=== PATIENT | male | born 1990 | race African-American/Black ===

== ENCOUNTER 2017-11-10 13:53 | Emergency (ER) | payer OTHER ==
[2017-11-10] MEDS ORDERED: traMADol TAB* 50 MG PO ONE (15:38)
[2017-11-10] MEDS ORDERED: Ketorolac INJ* 30 MG/ML 1 ML VIAL IV PUSH ONE (15:38)
[2017-11-10] MEDS ORDERED: Lidocaine PATCH 5%* 1 PATCH TRANSDERM SCH (16:00)
[2017-11-10 16:14] LABS: ABS Basophils 0 10^3/ul (0-0.2); ABS Eosinophils 0 10^3/ul (0-0.6); ABS Lymphocytes 1.7 10^3/ul (1.0-4.8); ABS Monocytes 0.2 10^3/ul (0-0.8); ABS Neutrophils 1.8 10^3/ul (1.5-7.7); ABS Nucleated RBC 0 10^3/ul; Eosinophil % 0.1 % (0-6); Hematocrit 49 % (42-52); Hemoglobin 16.4 g/dl (14.0-18.0); Lymphocyte % 45.6 % (25-47); Mean Corpuscular HGB Conc 33 g/dl (31-36); Mean Corpuscular Hemoglobin 26 pg (27-31); Mean Corpuscular Volume 78 fL (80-94); Mean Platelet Volume 9.1 um3 (7.4-10.4); Nucleated Red Blood Cells % 0.2; Platelet Count 138 10^3/ul (150-450); Red Blood Count 6.28 10^6/ul (4.0-5.4); Red Cell Distribution Width 15 % (10.5-15); White Blood Count 3.7 10^3/ul (3.5-10.8)
--- NOTE | 2017-11-10 16:21 | RAD ---
Indication: Chest pain. 2 views of the chest including dual energy PA views demonstrate no mediastinal shift. Heart is of normal size and configuration. Lung humphries appear clear. IMPRESSION: No active cardiopulmonary disease is noted.
[2017-11-10 16:30] LABS: EGFR Non-African American 85.4 (>60)
[2017-11-10 17:02] LABS: Urine Appearance Clear; Urine Blood Negative (Negative); Urine Color Yellow; Urine Ketones 1+ (Negative); Urine Protein Negative (Negative); Urine Specific Gravity 1.025 (1.010-1.030); Urine Urobilinogen Negative (Negative)
[2017-11-10] MEDS ORDERED: [UNRECOGNIZED DRUG - OTHER] PO ONE ×3 (18:08→18:32)
[2017-11-10 18:37] VITALS: BP 159/87
[2017-11-10] MEDS ORDERED: Lidocaine Patch REMOVE* 1 NOTE MISC SCH (21:00)
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
== END 2017-11-10 18:37 | disposition home or self-care (01) ==
LOC: ED 13:53
DX: M54.5 Low back pain (principal); M54.6 Pain in thoracic spine; I10 Essential (primary) hypertension; F17.200 Nicotine dependence, unspecified, uncomplicated
CPT/HCPCS: 36415; 71046; 80053; 81003; 83605; 84484; 85025; 85379; 93005; 96374; 99282; A9270-GY; J1885

== ENCOUNTER 2018-01-29 09:09 | Emergency (ER) | payer OTHER ==
[2018-01-29] MEDS ORDERED: Naproxen TAB* 250 MG PO ONE (09:59)
--- NOTE | 2018-01-29 10:04 | ED ---
Skin Complaint - HPI Summary HPI Summary: Patient is a 27-year-old male who presents emergency department for a rash and a headache. Patient states he noticed a spreading rash that started yesterday. He states he started with a headache today he noted to his left forehead and decreased appetite. Denies recent illness, fever, chills, cough, sore throat or ear pain, abdominal pain and diarrhea. States rash is not itchy or painful. No past medical history. Immunizations are up-to-date. Symptoms are mild in severity. - History of Current Complaint Chief Complaint: EDGeneral Time Seen by Provider: 01/29/18 09:25 Stated Complaint: HEADACHE/BITES Hx Obtained From: Patient Pain Intensity: 7 - Allergy/Home Medications Allergies/Adverse Reactions: Allergies Allergy/AdvReac Type Severity Reaction Status Date / Time No Known Allergies Allergy Verified 01/30/18 07:07 PMH/Surg Hx/FS Hx/Imm Hx Previously Healthy: Yes Sensory History: Denies: Hx Legally Blind, Hx Deafness Opthamlomology History: Denies: Hx Legally Blind Infectious Disease History: No Infectious Disease History: Denies: Traveled Outside the [place] in Last 30 Days - Family History Known Family History: Positive: Hypertension - Social History Occupation: Employed Full-time Lives: With Family Alcohol Use: None Substance Use Type: Reports: None Smoking Status (MU): Light Every Day Tobacco Smoker Review of Systems Constitutional: Negative Negative: Fever, Chills Eyes: Negative ENT: Negative Cardiovascular: Negative Respiratory: Negative Gastrointestinal: Negative Genitourinary: Negative Positive: Other - Rash on trunk Positive: Headache. Negative: Weakness, Paresthesia, Numbness All Other Systems Reviewed And Are Negative: Yes Physical Exam Triage Information Reviewed: Yes Vital Signs On Initial Exam: Initial Vitals Temp Pulse Resp BP Pulse Ox 100.1 F 98 17 154/103 99 01/29/18 09:16 01/29/18 09:16 01/29/18 09:16 01/29/18 09:16 01/29/18 09:16 Vital Signs Reviewed: Yes Appearance: Positive: Well-Appearing - Pt. sitting up in bed in NAD. Skin: Positive: Warm, Dry, Other - Small, fluid filled blisters noted to the chest and back. No lesions to palms of soles of feet. Head/Face: Positive: Normal Head/Face Inspection Eyes: Positive: Normal ENT: Positive: Pharynx normal, TMs normal, Other - No lesions in mouth or to mucosa.. Negative: Tonsillar swelling, Tonsillar exudate Neck: Positive: Supple, Nontender, No Lymphadenopathy Cardiovascular: Positive: Normal, RRR Abdomen Description: Positive: Nontender, No Organomegaly Neurological: Positive: Normal, CN Intact II-III Psychiatric: Positive: Affect/Mood Appropriate Diagnostics - Vital Signs Vital Signs Temp Pulse Resp BP Pulse Ox 01/29/18 09:16 100.1 F 98 17 154/103 99 - Laboratory Lab Statement: Any lab studies that have been ordered have been reviewed, and results considered in the medical decision making process. Course/Dx - Course Course Of Treatment: Pt. presenting for headache and rash. Low grade fever. Overall very well appearing and nontoxic. Pt. examined by Dr. Chew as well. Given presentation of rash suspect mild VZV vs. HSV. Viral culture obtained. Will treat with antivirals. Advised tylenol or motrin for discomfort as directed. To increase fluids and rest. Advised to avoid contact with immunocompentent and infants. To f.u with [facility] clinic or return to ER if symptoms change or worsen. Pt. understands and agrees with plan. Assessment/Plan: Dr. Chew: I supervised the care of the physician assistant plant controller and I performed a history and physical on this patient. History: Feeling of malaise as well as a vesicular rash. Vaccinated for varicella. Physical exam: Exam normal other than scattered vesicular lesions on erythematous base each in various stage of development. And overall few number of lesions. Plan: Possible varicella from incomplete vaccination with viral syndrome. - Differential Diagnoses - Skin Complaint Differential Diagnoses: Poison Prerna, Scabies, Tick Born Illness, Tinea, Urticaria , Varicella Zoster, Viral Exanthem - Diagnoses Provider Diagnoses: HSV infection, Rash Discharge - Sign-Out/Discharge Documenting (check all that apply): Patient Departure - Discharge Plan Condition: Good Disposition: HOME Prescriptions: Acyclovir* [Zovirax 400 MG TAB*] 800 mg PO QID #40 tab Patient Education Materials: Chickenpox (ED) Referrals: No Primary Care Phys,NOPCP [Primary Care Provider] - [facility] [Outside] Additional Instructions: Schedule a follow up appointment with the [facility] Take antiviral as directed Tylenol or Motrin for pain as directed Avoid contact with infants, unvaccinated, or immunocompromised Return to ER if symptoms change or worsen - Billing Disposition and Condition Condition: GOOD Disposition: Home
[2018-01-29 12:15] VITALS: BP 135/99
[2018-02-01 17:35] LABS: HSV 1 PCR Negative (Negative); Varicella Zoster Source r upper back blister
== END 2018-01-29 12:06 | disposition home or self-care (01) ==
LOC: ED 09:09
DX: B00.9 Herpesviral infection, unspecified (principal); R21 Rash and other nonspecific skin eruption; F17.200 Nicotine dependence, unspecified, uncomplicated
CPT/HCPCS: 87529; 87798; 99282; A9270-GY

== ENCOUNTER → 2018-01-30 06:57 | Emergency (ER) | payer OTHER ==
[~2018-01-30 06:57] MED LIST: Ketorolac INJ* 30 MG/ML 1 ML VIAL IV PUSH ONE; NS 0.9% 1000 ML* 1,000 ML IV ONE; diPHENhydraMINE IV* 50 MG/ML 1 ml VIAL (BENADRYL) IV ONE
--- NOTE | 2018-01-30 07:34 | ED ---
HPI Febrile Illness - HPI Summary HPI Summary: This patient is a 27 year old M presenting to [facility] with a chief complaint of rash accompanied by fever worsening since midnight last night. The patient rates the pain 10/10 in severity. Symptoms not alleviated by calamine lotion. Patient reports fever, itching, vomiting, diaphoresis, HOFFMAN, nausea, body aches, malaise. Patient denies cough or diarrhea. On Wednesday morning, the pt noticed a spot on his stomach and by 12 pm he was feeling much more symptomatic. Pt came in yesterday for rash accompanied by fever and was diagnosed with Chicken Pox. SHx of tobacco use, doesnt drink. 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 PMHx none. Pt has taken acyclovir [employer]. - History of Current Complaint Chief Complaint: EDGeneral Time Seen by Provider: 01/30/18 07:16 Hx Obtained From: Patient Onset/Duration: Started Days Ago - Wednesday Timing: Constant Initial Severity: Mild Current Severity: Moderate Pain Intensity: 10 Pain Scale Used: 0-10 Numeric - Allergy/Home Medications Allergies/Adverse Reactions: Allergies Allergy/AdvReac Type Severity Reaction Status Date / Time No Known Allergies Allergy Verified 01/30/18 07:07 PMH/Surg Hx/FS Hx/Imm Hx Sensory History: Denies: Hx Legally Blind, Hx Deafness Opthamlomology History: Denies: Hx Legally Blind EENT History: Denies: Hx Deafness Infectious Disease History: No Infectious Disease History: Denies: Traveled Outside the [place] in Last 30 Days - Family History Known Family History: Positive: Hypertension - Social History Occupation: Employed Full-time - long-term Alcohol Use: None Substance Use Type: Reports: None Hx Tobacco Use: Yes Smoking Status (MU): Light Every Day Tobacco Smoker Review of Systems Positive: Fever, Skin Diaphoresis, Other - Malaise Negative: Cough Positive: Vomiting, Nausea. Negative: Diarrhea Positive: Rash - Itchy Positive: Headache, Weakness - body ache All Other Systems Reviewed And Are Negative: Yes Physical Exam - Summary Physical Exam Summary: Appearance: Well appearing, no pain distress Skin: warm. Vesicular lesions on the body and face. Erythematous scabs. Head/face: Pruritic lesions Eyes: EOMI, EMILIANA ENT: normal Neck: supple, non-tender Respiratory: CTA, breath sounds present Cardiovascular: RRR, pulses symmetrical Abdomen: non-tender, soft Bowel Sounds: present Musculoskeletal: normal, strength/ROM intact Neuro: normal, sensory motor intact, A&Ox3 Triage Information Reviewed: Yes Vital Signs On Initial Exam: Initial Vitals Temp Pulse Resp BP Pulse Ox 101.9 F 101 18 138/83 100 01/30/18 07:00 01/30/18 07:00 01/30/18 07:00 01/30/18 07:00 01/30/18 07:00 Vital Signs Reviewed: Yes Diagnostics - Vital Signs Vital Signs Temp Pulse Resp BP Pulse Ox 01/30/18 07:00 101.9 F 101 18 138/83 100 - Laboratory Lab Statement: Any lab studies that have been ordered have been reviewed, and results considered in the medical decision making process. Course/Dx - Course Course Of Treatment: Patient with chickenpox and associated viral syndrome. Treated symptomatically here with fluids, Toradol, Tylenol and Benadryl for itching. Improved through course. Discharged to follow up with family doctor. - Diagnoses Provider Diagnoses: Varicella zoster, Viral syndrome Discharge - Sign-Out/Discharge Documenting (check all that apply): Patient Departure - Discharge - Discharge Plan Condition: Improved Disposition: HOME Patient Education Materials: Chickenpox (ED) Forms: *Work Release Referrals: [facility] [Outside] [facility] [Outside] Additional Instructions: Drink plenty of fluids. Tylenol, ibuprofen for body aches. Benadryl for itching. Calamine lotion may help the rash. Return if worse, new symptoms or other concerns. - Billing Disposition and Condition Condition: IMPROVED Disposition: Home
[2018-01-30 11:49] VITALS: BP 125/85
--- NOTE | 2018-02-02 11:42 | ED ---
Progress - Progress Note Progress Note: Patient's wound swab confirms VZV. Patient was started on acyclovir within 24 hours of onset. He reports he has no new lesions and most all of his lesions are scabbed. He feels he is improving and that his rash should clear up in the next few days. No fevers reported. Patient is aware of this disorder and how may be contagious, etc. He will seek follow-up as needed. Course/Dx - Course Course Of Treatment: Patient with chickenpox and associated viral syndrome. Treated symptomatically here with fluids, Toradol, Tylenol and Benadryl for itching. Improved through course. Discharged to follow up with family doctor. - Diagnoses Provider Diagnoses: Varicella zoster, Viral syndrome Discharge - Sign-Out/Discharge Documenting (check all that apply): Post-Discharge Follow Up - Discharge Plan Condition: Improved Disposition: HOME Patient Education Materials: Chickenpox (ED) Forms: *Work Release [facility]errals: [facility] [Outside] [facility] [Outside] Additional Instructions: Drink plenty of fluids. Tylenol, ibuprofen for body aches. Benadryl for itching. Calamine lotion may help the rash. Return if worse, new symptoms or other concerns. - Billing Disposition and Condition Condition: IMPROVED Disposition: Home
== END | disposition home or self-care (01) ==
LOC: ED 06:57
DX: B34.9 Viral infection, unspecified (principal); B02.9 Zoster without complications
CPT/HCPCS: 96361; 96374; 96375; 99283; J1200; J1885

== ENCOUNTER 2018-06-28 21:57 | Emergency (ER) | payer SELFPAY ==
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
[2018-06-28] MEDS ORDERED: Ibuprofen TAB* 800 MG PO ONE (22:44)
[2018-06-28 22:54] VITALS: BP 141/100
--- NOTE | 2018-07-01 06:20 | PN ---
Progress Note - Progress Note Date of Service: 06/29/18 Note: Discrepancy shows: Discharged with possible + hand fx Xray read as negative. Patient is called to make aware, but did not answer - will send letter. Letter sent 07/01/18. JUNE PepperC
== END 2018-06-28 22:53 | disposition home or self-care (01) ==
LOC: ED 21:57
DX: S69.91XA Unspecified injury of right wrist, hand and finger(s), initial encounter (principal); Y04.2XXA Assault by strike against or bumped into by another person, initial encounter; Y92.9 Unspecified place or not applicable; F17.200 Nicotine dependence, unspecified, uncomplicated
CPT/HCPCS: 99282; A9270-GY

== ENCOUNTER 2018-07-06 08:55 | Emergency (ER) | payer SELFPAY ==
[2018-07-06] MEDS ORDERED: Acetaminophen TAB* 325 MG PO ONE (09:22)
--- NOTE | 2018-07-06 09:29 | ED ---
Upper Extremity Pain - HPI Summary HPI Summary: Patient presents with persistent right hand/thumb pain since injury on 2017. He came here for evaluation and was initially diagnosed with a fracture and placed a thumb spica however final radiology report revealed no fracture. He admits he removed his thumb spica 2 days ago as he was having worsening of pain and swelling in the splint felt like it was causing more harm than good. He has been taking ibuprofen without relief. Has not tried any Tylenol. He has been out of work as his job requires him to lift. Denies numbness tingling or weakness. Pain is worse with moving thumb in any direction and he's reporting difficulty with gripping due to pain. He also reports a burning sensation over his thenar eminence. He is able to move his wrist without difficulty. No other complaints at this time. He has not followed up with orthopedics. - History of Current Complaint Chief Complaint: EDExtremityUpper Stated Complaint: RIGHT HAND PAIN Time Seen by Provider: 07/06/18 09:08 Hx Obtained From: Patient - Allergies/Home Medications Allergies/Adverse Reactions: Allergies Allergy/AdvReac Type Severity Reaction Status Date / Time No Known Allergies Allergy Verified 01/30/18 07:07 PMH/Surg Hx/FS Hx/Imm Hx Previously Healthy: Yes Endocrine/Hematology History: Denies: Hx Anticoagulant Therapy Respiratory History: Denies: Hx Asthma Musculoskeletal History: Reports: Other Musculoskeletal History - Left hand injury s/p punching Sensory History: Denies: Hx Legally Blind, Hx Deafness Opthamlomology History: Denies: Hx Legally Blind Infectious Disease History: No Infectious Disease History: Denies: Traveled Outside the [place] in Last 30 Days - Family History Known Family History: Positive: Hypertension - Social History 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" Alcohol Use: None Hx Substance Use: No Substance Use Type: Reports: None Hx Tobacco Use: Yes Smoking Status (MU): Current Every Day Smoker Review of Systems Positive: no symptoms reported Positive: Arthralgia, Myalgia, Decreased ROM - d/t pain, Edema Skin: Negative Neurological: Negative Positive: Anxious All Other Systems Reviewed And Are Negative: Yes Physical Exam Triage Information Reviewed: Yes Vital Signs On Initial Exam: Initial Vitals Temp Pulse Resp BP Pulse Ox 98.0 F 82 16 147/115 96 07/06/18 09:02 07/06/18 09:02 07/06/18 09:02 07/06/18 09:02 07/06/18 09:02 Vital Signs Reviewed: Yes Appearance: Positive: Well-Appearing, Well-Nourished, Pain Distress - moderate - shaking foot, Skin: Positive: Warm, Skin Color Reflects Adequate Perfusion, Dry - mild edema of Rt thenar eminance compared to Lt - no signs of compartment syndrome Head/Face: Positive: Normal Head/Face Inspection Eyes: Positive: EOMI ENT: Positive: Hearing grossly normal Respiratory/Lung Sounds: Positive: Breath Sounds Present Cardiovascular: Positive: Pulses are Symmetrical in both Upper and Lower Extremities - cap refill < 2 secs, radial pulse + 2 Musculoskeletal: Positive: Limited @ - Rt thumb ROM limited d/t pain, Pain @ - Rt thenar eminance with mild TTP Neurological: Positive: Normal, Sensory/Motor Intact - can move thumb - sensation of thumbs are equal B/L, Alert, Oriented to Person Place, Time, CN Intact II-III Psychiatric: Positive: Anxious Procedures - Splinting Left Upper Extremity Location: hand Pre-Made Type: velcro Splint: thumb spica Pre-Proc Neuro Vasc Exam: normal Post-Proc Neuro Vasc Exam: normal Diagnostics - Vital Signs Vital Signs Temp Pulse Resp BP Pulse Ox 07/06/18 09:02 98.0 F 82 16 147/115 96 - Laboratory Lab Statement: Any lab studies that have been ordered have been reviewed, and results considered in the medical decision making process. Course/Dx - Course Course Of Treatment: suspect ligament/tendon injury to Left thumb. Advised RICE and close f/u w/ hand specialist. Danger s/sx provided to pt. - Diagnoses Provider Diagnoses: Sprain of right thumb Discharge - Sign-Out/Discharge Documenting (check all that apply): Patient Departure - Discharge Plan Condition: Stable Disposition: HOME Patient Education Materials: [employer] (ED) Forms: *Work Release Referrals: Kaur Magallanes MD [Medical Doctor] - Additional Instructions: REST, ICE, ELEVATE HAND ABOVE THE HEART AND AVOID USE - KEEP SPLINT CLEAN, DRY AND IN PLACE UNTIL SEEN BY ORTHOPEDICS. Call orthopedics today to schedule follow-up You may take ibuprofen 800mg every 8 hours with food alternating with acetaminophen extra strength every 6 hours as needed for pain *If you develop numbness, tingling, weakness, swelling or skin discoloration, remove thumbs splint and elevate arm for 20 minutes. If symptoms persist, return to ED - Billing Disposition and Condition Condition: STABLE Disposition: Home
[2018-07-06 09:51] VITALS: BP 145/102
== END 2018-07-06 09:50 | disposition home or self-care (01) ==
LOC: ED 08:55
DX: S63.601A Unspecified sprain of right thumb, initial encounter (principal); F17.200 Nicotine dependence, unspecified, uncomplicated; X58.XXXA Exposure to other specified factors, initial encounter; Y92.9 Unspecified place or not applicable
CPT/HCPCS: 99282; A9270-GY

== ENCOUNTER → 2018-11-13 18:56 | Emergency (ER) | payer SELFPAY ==
--- NOTE | 2018-11-13 20:00 | ED ---
Neck Pain - HPI Summary HPI Summary: This patient is a 28 year old M presenting to [facility] with a chief complaint of lump on left neck that began one week ago. The patient rates the pain /10 in severity. Symptoms aggravated by eating and nighttime. Symptoms alleviated by nothing. Patient reports tingling in left jaw, L shoulder pain (began after tripping and falling on the shoulder that occurred on 11/11), and clicking in L shoulder. - History of Current Complaint Chief Complaint: EDNeckComplaint Stated Complaint: LUMP ON NECK/PAIN IN LT SHOULDER PER PT Time Seen by Provider: 11/13/18 19:52 Hx Obtained From: Patient Onset/Duration Of Injury/Symptoms: Weeks Mechanism Of Injury: No Known Trauma Timing: Constant Onset/Duration: Sudden Onset, Started weeks ago, Still Present Severity Initially: Moderate Severity Currently: Moderate Pain Intensity: 6 Pain Scale Used: 0-10 Numeric Location: Discrete At: - Left neck Aggravating Factors: Other: - Eating and nighttime Alleviating Factors: Nothing - Allergies/Home Medications Allergies/Adverse Reactions: Allergies Allergy/AdvReac Type Severity Reaction Status Date / Time bee venom protein (honey bee) Allergy Anaphylatic Verified 11/13/18 18:59 Shock Home Medications: Home Medications NK [No Home Medications Reported] 11/13/18 [History Confirmed 11/13/18] PMH/Surg Hx/FS Hx/Imm Hx Previously Healthy: No Endocrine/Hematology History: Denies: Hx Anticoagulant Therapy Respiratory History: Denies: Hx Asthma Musculoskeletal History: Reports: Other Musculoskeletal History - Left hand injury s/p punching Sensory History: Denies: Hx Legally Blind, Hx Deafness Opthamlomology History: Denies: Hx Legally Blind Infectious Disease History: No Infectious Disease History: Denies: Traveled Outside the [place] in Last 30 Days - Family History Known Family History: Positive: Hypertension - Social History Occupation: Unemployed Lives: With Family Alcohol Use: Occasionally Hx Substance Use: No Substance Use Type: Reports: None Hx Tobacco Use: Yes Smoking Status (MU): Current Every Day Smoker Review of Systems Positive: Other - Positive L shoulder pain and clicking in L shoulder Positive: Other - Positive lump on left neck Neurological: Other - Positive tingling in L jaw All Other Systems Reviewed And Are Negative: Yes Physical Exam - Summary Physical Exam Summary: Appearance: Well-appearing, Well-nourished, lying in bed comfortably Skin: Warm, dry, no obvious rash Eyes: sclera anicteric, no conjunctival pallor ENT: mucous membranes moist, pharynx appears normal Neck: Supple, nontender, Roughly 2 cm firm nontender mass on the left side of the neck anterior to the sternocleidomastoid and just below the jaw. Respiratory: Clear to auscultation, no signs of respiratory distress Cardiovascular: Normal S1, S2. No murmurs. Normal distal pulses in tibial and radial bilaterally. Abdomen: Soft, nontender, normal active bowel sounds present Musculoskeletal: Normal, Strength/ROM Intact Neurological: A&Ox3, awake and alert, mentation is normal, speech is fluent and appropriate Psychiatric: affect is normal, does not appear anxious or depressed Triage Information Reviewed: Yes Vital Signs On Initial Exam: Initial Vitals Temp Pulse Resp BP Pulse Ox 97.9 F 76 14 149/102 98 11/13/18 18:59 11/13/18 18:59 11/13/18 18:59 11/13/18 18:59 11/13/18 18:59 Vital Signs Reviewed: Yes Diagnostics - Vital Signs Vital Signs Temp Pulse Resp BP Pulse Ox 11/13/18 18:59 97.9 F 76 14 149/102 98 - Laboratory Result Diagrams: 11/13/18 20:14 11/13/18 20:12 Lab Statement: Any lab studies that have been ordered have been reviewed, and results considered in the medical decision making process. - Additional Comments Diagnostic Additional Comments: Soft tissue US of the neck reveals, per radiologist, submandibular gland with hypoechoic nodule and calcification. Consider further evaluation with CT if clinically indicated. ED physician has reviewed this radiology report. Neck Course/Dx - Course Course Of Treatment: This patient is a 28 year old M presenting to [facility] with a chief complaint of lump on left neck that began one week ago. Physical Exam Findings: Roughly 2 cm firm nontender mass on the left side of the neck anterior to the sternocleidomastoid and just below the jaw. Soft tissue US of the neck reveals, per radiologist, submandibular gland with hypoechoic nodule and calcification. Consider further evaluation with CT if clinically indicated. Bloodwork obtained. Patient will be discharged with follow up from PCP. The patient is agreeable with this plan. - Diagnoses Provider Diagnoses: Mass of salivary gland Discharge - Sign-Out/Discharge Documenting (check all that apply): Patient Departure - Discharge home Patient Received Moderate/Deep Sedation with Procedure: No - Discharge Plan Condition: Stable Disposition: HOME Forms: *Work Release Referrals: Kaden Zavala MD [Medical Doctor] - Dario Najera MD [Medical Doctor] - Otis Osman MD [Medical Doctor] - Additional Instructions: The ultrasound that we did today shows that the lump is solid and within the salivary gland under your jaw. You are going to need to see an ENT specialist to have further testing done, so call one of the doctors listed (we do not have an ENT specialist salesperson household appliances here today) to make an appointment [facility]. If it doesn' t start to resolve on its own by the time you see the specialist, you will likely need a needle aspiration procedure and a CT scan, but I would leave that up to the specialist. - Billing Disposition and Condition Condition: STABLE Disposition: Home - Attestation Statements Document Initiated by Scribe: Yes Documenting Scribe: Kacie Yeh Provider For Whom Tequila is Documenting (Include Credential): Dr. Merrick Smith MD Scribe Attestation: I, Kacie Yeh, scribed for Dr. Merrick Smith MD on 11/14/18 at 0346. Scribe Documentation Reviewed: Yes Provider Attestation: The documentation as recorded by the Kacie ye accurately reflects the service I personally performed and the decisions made by me, Dr. Merrick Smith MD Status of Scribe Document: Viewed
[2018-11-13 20:22] LABS: ABS Basophils 0 10^3/ul (0-0.2); ABS Eosinophils 0 10^3/ul (0-0.6); ABS Lymphocytes 1.6 10^3/ul (1.0-4.8); ABS Monocytes 0.2 10^3/ul (0-0.8); ABS Neutrophils 2.4 10^3/ul (1.5-7.7); ABS Nucleated RBC 0 10^3/ul; Eosinophil % 0 %; Hematocrit 46 % (36-46); Hemoglobin 15.3 g/dL (14.0-18.0); Lymphocyte % 37.8 %; Mean Corpuscular HGB Conc 33 g/dL (31-36); Mean Corpuscular Hemoglobin 27 pg (27-31); Mean Corpuscular Volume 81 fL (80-94); Mean Platelet Volume 9.1 fL (7.4-10.4); Nucleated Red Blood Cells % 0.2; Platelet Count 128 10^3/uL (150-450); Red Blood Count 5.71 10^6 /uL (4.18-5.48); Red Cell Distribution Width 15 % (10.5-15); White Blood Count 4.3 10^3/uL (3.5-10.8)
[2018-11-13 20:40] LABS: Albumin 4.2 g/dL (3.2-5.2); Albumin/Globulin Ratio 1.9 (1-3); BUN/Creatinine Ratio 13.4 (8-20); EGFR African American 93.1 (>60); Globulin 2.2 g/dL (2-4); Total Bilirubin 0.3 mg/dL (0.2-1.0); Total Protein 6.4 g/dL (6.4-8.9)
[2018-11-13 21:34] VITALS: BP 148/111
[2018-11-13 21:35] LABS: Potassium 4.1 mmol/L (3.5-5.0)
== END | disposition home or self-care (01) ==
LOC: ED 18:56
DX: K11.8 Other diseases of salivary glands (principal); R22.1 Localized swelling, mass and lump, neck; F17.210 Nicotine dependence, cigarettes, uncomplicated; M25.512 Pain in left shoulder; Z91.81 History of falling
CPT/HCPCS: 36415; 76536; 80053; 85025; 99282

== ENCOUNTER 2018-12-06 19:28 | Emergency (ER) | payer MEDICAID ==
--- OUTSIDE RECORDS SUMMARY | 2018-12-06 19:42 | XMS REPORT | Continuity of Care Document ---
:1990 External Reference #:[id number] Author Name Mouna Schreiber Care Team Providers Name Role Phone Seth Dial M.D. 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 Recreational Drug Use Never Used Drugs Allergies, Adverse Reactions, Alerts Description No Known Drug Allergies Medications Active Medications SIG Qnty Indications Ordering Provider Date Percocet 1-2 by mouth 10tabs Seth Dial M.D. 11/22/2018 5-325mg four times a day Tablets as needed for pain History Medications No Active Medications Unknown 11/16/2018 - 11/22/2018 Vital Signs Date Vital Result Comment 12/02/2018 1:00pm Weight 155.00 lb Height 70 inches 5'10" BMI (Body Mass Index) 22.2 kg/m2 BP Systolic 144 mmHg BP Diastolic 99 mmHg Heart Rate 99 /min O2 % BldC Oximetry 99 % Body Temperature 98.4 F Pain Level 8 11/16/2018 2:56pm Weight 155.00 lb Height 70 inches 5'10" BMI (Body Mass Index) 22.2 kg/m2 BP Systolic 122 mmHg BP Diastolic 77 mmHg Heart Rate 67 /min O2 % BldC Oximetry 99 % Body Temperature 97.7 F Pain Level 0 Results Test Date Facility Test Result H/L Range Note Laboratory test 11/22/2018 [facility] Surgical SEE RESULT [address] [place] [address] [phone] 1 SEE RESULT BELOW Name: SHANNA MOULTON Britta : [address]: Seth Dial MD Acct: [id number] Unit: [id number] AGE: 28 Location: [facility] Re11/22/18 SEX: M Status: REG REF SPEC: [id number] BEV: 11/22/[address] [facility] [address]: Seth Dial MD REQ: [id number] RECD: 11/22/18 STATUS: SOUT _ ORDERED: LEVEL 5 COMMENTS: [id number] FINAL DIAGNOSIS Left submandibular gland, excision: -- Marked chronic sialoadenitis. -- Sialolithiasis. -- No evidence of neoplasia. CLINICAL HISTORY No history given GROSS DESCRIPTION The specimen is received in formalin labeled, Left Submandibular Gland, and consists of a 13 g, 4.0 x 3.7 x 2.0 cm trujillo-yee salivary gland. The outer surface is smooth to focally shaggy and lobulated with a few adhesions and scant adherent yellow fat. Sectioning reveals a 1.5 x 1.1 x 0.8 cm yellow-white calculus consistent with a sialolith. The remaining cut surface is trujillo-pink and lobulated. The specimen is inked, serially sectioned and consumer sales representative sections are submitted in cassettes A through F. Signed by and Reported on: Katie Moreno MD 11/24/18 1456 END OF REPORT DEPARTMENT OF PATHOLOGY, [address] [place] [address] Triston Hunter M.D. Director [facility] # [id number] Procedures Date Code Description Status 11/22/2018 65275 Exc. Submandibular/Submax Gland Completed 11/22/2018 44496 Exc. Submandibular/Submax Gland Completed 11/22/2018 54455 Anesthesia Salivary Glands Biopsy Completed 11/16/2018 39404 Ultrasound Head/Neck Completed Encounters Type Date Location Provider Dx Diagnosis Office Visit 11/16/2018 Main Office Seth Dial M.D. K11.20 Sialoadenitis, 2:45p unspecified K11.5 Sialolithiasis
--- OUTSIDE RECORDS SUMMARY | 2018-12-06 19:42 | XMS REPORT | Continuity of Care Document ---
:1990 External Reference #:[id number] Author Name Leah Wolff Care Team Providers Name Role Phone Seth Dial M.D. Care Team Information Oncology Admin Unavailable Payers Date Identification Numbers Payment Provider Subscriber Policy Number: [id number] Medicaid Maicol Moulton PayID: [id number] [address] [place] [id number] Advance Directives Description No Information Available Problems Description No Information Family History Date Family Member(s) Observation Comments [...] Alerts Description No Known Drug Allergies Medications Description No Active Medications Immunizations Description No Information Available Vital Signs Date Vital Result Comment 11/16/2018 2:56pm Weight 155.00 lb Height 70 inches 5'10" BMI (Body Mass Index) 22.2 kg/m2 BP Systolic 122 mmHg BP Diastolic 77 mmHg Heart Rate 67 /min O2 % BldC Oximetry 99 % Body Temperature 97.7 F Pain Level 0 Results Description No Information Available Procedures Description No Information Available Encounters Description No Information Available Plan of Treatment No Information Available
--- OUTSIDE RECORDS SUMMARY | 2018-12-06 19:42 | XMS REPORT | Continuity of Care Document ---
:1990 External Reference #:[id number] Author Name Seth Dial M.D. Address [address] [place] [address] Care Team Providers Name Role Phone Seth Dial M.D. Care Team Information Exercise Physiologist Unavailable Payers Date Identification Numbers Payment Provider Subscriber Policy Number: [id number] Medicaid Shanna Moulton PayID: [id number] [address] [place] [phone] Family History Date Family Member(s) Observation Comments [...] Result H/L Range Note Laboratory test 11/22/2018 [facility] Surgical SEE RESULT [address] Pathology BELOW [place], [place] [id number] [phone] 1 SEE RESULT BELOW Name: SHANNA MOULTON : [address]: Seth Dial MD Acct: [id number] Unit: [id number] AGE: 28 Location: [facility] Re11/22/18 SEX: M Status: REG REF SPEC: [id number] BEV: 11/22/[address] [facility] [address]: Seth Dial MD REQ: [id number] RECD: 11/22/18 STATUS: SOUT _ ORDERED: LEVEL 5 COMMENTS: [id number] FINAL DIAGNOSIS Left submandibular gland, excision: -- [...] The specimen is inked, serially sectioned and retail sales representative sections are submitted in cassettes A through F. Signed by and Reported on: Katie Moreno MD 11/24/18 1456 END OF REPORT DEPARTMENT OF PATHOLOGY, [address] [place] [address] Triston Hunter M.D. Director [facility] # [id number] Procedures Date Code Description Status 11/22/2018 61030 Exc. Submandibular/Submax Gland Completed 11/22/2018 86157 Exc. Submandibular/Submax Gland Completed 11/22/2018 83190 Anesthesia Salivary Glands Biopsy Completed 11/16/2018 69341 Ultrasound Head/Neck Completed Encounters Type Date Location Provider Dx Diagnosis Office Visit 11/16/2018 Main Office Seth Dial M.D. K11.20 Sialoadenitis, 2:45p unspecified K11.5 Sialolithiasis
[2018-12-06 20:23] LABS: ABS Lymphocytes 1.6 10^3/ul (1.0-4.8); ABS Monocytes 0.3 10^3/ul (0-0.8); ABS Neutrophils 3.1 10^3/ul (1.5-7.7); Hematocrit 48 % (42-52); Hemoglobin 15.8 g/dL (14.0-18.0); Lymphocyte % 31.6 %; Mean Corpuscular HGB Conc 33 g/dL (31-36); Mean Corpuscular Hemoglobin 27 pg (27-31); Mean Corpuscular Volume 80 fL (80-94); Mean Platelet Volume 8.8 fL (7.4-10.4); Nucleated Red Blood Cells % 0.2; Platelet Count 168 10^3/uL (150-450); Red Blood Count 5.96 10^6 /uL (4.18-5.48); Red Cell Distribution Width 14 % (10.5-15)
[2018-12-06 20:41] LABS: Albumin 4.8 g/dL (3.2-5.2); Albumin/Globulin Ratio 1.9 (1-3); BUN/Creatinine Ratio 15.5 (8-20); Calcium 9.6 mg/dL (8.6-10.3); EGFR African American 102.6 (>60); EGFR Non-African American 84.8 (>60); Globulin 2.5 g/dL (2-4); Potassium 4.2 mmol/L (3.5-5.0); Total Bilirubin 0.4 mg/dL (0.2-1.0); Total Protein 7.3 g/dL (6.4-8.9)
--- NOTE | 2018-12-06 22:24 | ED ---
Throat Pain/Nasal Congestion - HPI Summary HPI Summary: Patient with history of recent lesion removal from submandibular gland 2 weeks ago complains of persistent bump at area of surgery and finding blood bubbles on tongue. Patient eating and drinking normally. Denies any pain. States postsurgical incision has been evaluated by ENT who said everything was fine. Patient denies fever, cough, sore throat, CP, SOB, N/V/D, abdominal pain, change in urine, change in BM. Medical history is none. - History of Current Complaint Chief Complaint: EDBleedingDisorder Time Seen by Provider: 12/06/18 21:33 Hx Obtained From: Patient Onset/Duration: Gradual Onset, Lasting Days Associated Signs And Symptoms: Positive: Negative Cough: None - Allergies/Home Medications Allergies/Adverse Reactions: Allergies Allergy/AdvReac Type Severity Reaction Status Date / Time bee venom protein (honey bee) Allergy Anaphylatic Verified 12/06/18 19:34 Shock PMH/Surg Hx/FS Hx/Imm Hx Endocrine/Hematology History: Denies: Hx Anticoagulant Therapy Cardiovascular History: Denies: Hx Pacemaker/ICD Respiratory History: Denies: Hx Asthma History: Denies: Hx Dialysis Musculoskeletal History: Reports: Other Musculoskeletal History - Left hand injury s/p punching Sensory History: Denies: Hx Legally Blind, Hx Deafness Opthamlomology History: Denies: Hx Legally Blind EENT History: Denies: Hx Deafness Neurological History: Denies: Hx Dementia Psychiatric History: Denies: Hx Autism Infectious Disease History: No Infectious Disease History: Denies: Traveled Outside the [place] in Last 30 Days - Family History Known Family History: Positive: Hypertension - Social History Alcohol Use: Occasionally Hx Substance Use: No Substance Use Type: Reports: None Hx Tobacco Use: Yes Smoking Status (MU): Current Every Day Smoker Review of Systems Constitutional: Negative Eyes: Negative ENT: Negative Cardiovascular: Negative Respiratory: Negative Gastrointestinal: Negative Genitourinary: Negative Musculoskeletal: Negative Skin: Negative Neurological: Negative Psychological: Normal All Other Systems Reviewed And Are Negative: Yes Physical Exam - Summary Physical Exam Summary: Positive firm raised area on left side neck versus right side neck. Surgical incision looks clean dry and intact. ENT exam unremarkable. Triage Information Reviewed: Yes Vital Signs On Initial Exam: Initial Vitals Temp Pulse Resp BP Pulse Ox 98.9 F 96 16 158/105 98 12/06/18 19:32 12/06/18 19:32 12/06/18 19:32 12/06/18 19:32 12/06/18 19:32 Vital Signs Reviewed: Yes Appearance: Positive: Well-Appearing Skin: Positive: Warm Head/Face: Positive: Normal Head/Face Inspection Eyes: Positive: Normal ENT: Positive: Normal ENT inspection Neck: Positive: Supple Respiratory/Lung Sounds: Positive: Clear to Auscultation Cardiovascular: Positive: Normal Abdomen Description: Positive: Nontender Musculoskeletal: Positive: Normal Neurological: Positive: Normal Psychiatric: Positive: Normal AVPU Assessment: Alert - Radha Coma Scale Best Eye Response: 4 - Spontaneous Best Motor Response: 6 - Obeys Commands Best Verbal Response: 5 - Oriented Coma Scale Total: 15 Diagnostics - Vital Signs Vital Signs Temp Pulse Resp BP Pulse Ox 12/06/18 19:32 98.9 F 96 16 158/105 98 - Laboratory Lab Results: Lab Results 12/06/18 12/06/18 12/06/18 Range/Units 20:07 20:07 20:07 WBC 5.0 (3.5-10.8) 10^3/uL RBC 5.96 H (4.18-5.48) 10^6 /uL Hgb 15.8 (14.0-18.0) g/dL Hct 48 (42-52) % MCV 80 (80-94) fL MCH 27 (27-31) pg MCHC 33 (31-36) g/dL RDW 14 (10.5-15) % Plt Count 168 (150-450) 10^3/uL MPV 8.8 (7.4-10.4) fL Neut % (Auto) 62.3 % Lymph % (Auto) 31.6 % Moffat % (Auto) 5.6 % Eos % (Auto) 0.0 % Baso % (Auto) 0.5 % Absolute Neuts (auto) 3.1 (1.5-7.7) 10^3/ul Absolute Lymphs (auto) 1.6 (1.0-4.8) 10^3/ul Absolute Monos (auto) 0.3 (0-0.8) 10^3/ul Absolute Eos (auto) 0.0 (0-0.6) 10^3/ul Absolute Basos (auto) 0.0 (0-0.2) 10^3/ul Absolute Nucleated RBC 0.0 10^3/ul Nucleated RBC % 0.2 INR (Anticoag Therapy) 1.00 (0.82-1.09) Sodium 141 (135-145) mmol/L Potassium 4.2 (3.5-5.0) mmol/L Chloride 110 (101-111) mmol/L Carbon Dioxide 25 (22-32) mmol/L Anion Gap 6 (2-11) mmol/L BUN 16 (6-24) mg/dL Creatinine 1.03 (0.67-1.17) mg/dL Est GFR ( Amer) 102.6 (>60) Est GFR (Non-Af Amer) 84.8 (>60) BUN/Creatinine Ratio 15.5 (8-20) Glucose 95 (70-100) mg/dL Calcium 9.6 (8.6-10.3) mg/dL Total Bilirubin 0.40 (0.2-1.0) mg/dL AST 18 (13-39) U/L ALT 20 (7-52) U/L Alkaline Phosphatase 64 (34-104) U/L Total Protein 7.3 (6.4-8.9) g/dL Albumin 4.8 (3.2-5.2) g/dL Globulin 2.5 (2-4) g/dL Albumin/Globulin Ratio 1.9 (1-3) Result Diagrams: 12/06/18 20:07 12/06/18 20:07 Lab Statement: Any lab studies that have been ordered have been reviewed, and results considered in the medical decision making process. EENT Course/Dx - Course Course Of Treatment: Patient with history of recent lesion removal from submandibular gland 2 weeks ago complains of persistent bump at area of surgery and finding blood bubbles on tongue. Patient eating and drinking normally. Denies any pain. States postsurgical incision has been evaluated by ENT who said everything was fine. Patient denies fever, cough, sore throat, CP, SOB, N/ V/D, abdominal pain, change in urine, change in BM. Medical history is none. Physical exam:Positive firm raised area on left side neck versus right side neck. Surgical incision looks clean dry and intact. ENT exam unremarkable. Vital signs within normal limits. Ultrasound positive for a mixed echogenic lesion located in the submandibular area 1.9 cm in length. Unknown whether this represents no lesions or old lesions which are now more apparent since the surgery. Depending on the histology of the removed lesions this may represent metastatic thyroid disease. Inferior to the submandibular gland located the edge of the incision is a mixed echogenic lesion measuring 1.4 x 1.4 x 1.9 cm. No internal flow. May represent an inflammatory process. Does not look like classic abscess. Patient opted to leave before ultrasound results were back. Patient will be notified if ultrasound results are concerning. Patient was called this morning at 00:10 to advise him to follow-up with his ear nose and throat surgeon, however patient did not answer phone and voice mailbox was full.Left note for morning PA to follow up with patient. - Diagnoses Provider Diagnoses: Unilateral mass of neck Discharge - Sign-Out/Discharge Documenting (check all that apply): Patient Departure Patient Received Moderate/Deep Sedation with Procedure: No - Discharge Plan Condition: Stable Disposition: HOME Referrals: No Primary Care Phys,NOPCP [Primary Care Provider] - Additional Instructions: You will be contacted with results of ultrasound tomorrow if findings are concerning. Follow up with ENT. Return to the ED for any new or worsening symptoms. - Billing Disposition and Condition Condition: STABLE Disposition: Home
[2018-12-06 23:17] VITALS: BP 131/78
--- NOTE | 2018-12-07 00:13 | PN ---
Progress Note - Progress Note Date of Service: 12/07/18 Note: Patient left prior to results of ultrasound of soft tissue neck. Results positive for mixed echogenic lesions located in the submandibular area largest lesion measures approximately 1.9 cm in length question whether represents no lesions or lesions. Depending on the histology of a remote lesions this may represent metastatic thyroid disease. Also located at the edge of the incision is a mixed echogenic lesion measuring 1.4 x 1.4 x 1.9 cm no internal flow. May represent inflammatory process does not look classic abscess. Consider needle aspiration. Patient was called at 00:10 on 12/07 to be informed of results. However patient did not answer phone and voice mailbox was full. Will leave a note for morning PA to follow-up with repeat phone call.
--- NOTE | 2018-12-09 05:55 | PN ---
Progress Note - Progress Note Date of Service: 12/09/18 Note: unable to get a hold of patient as is wrong number. letter sent with ultrasound results and suggested follow up with his ENT.
== END 2018-12-06 23:15 | disposition home or self-care (01) ==
LOC: ED 19:28
DX: R22.1 Localized swelling, mass and lump, neck (principal); R94.8 Abnormal results of function studies of other organs and systems; F17.210 Nicotine dependence, cigarettes, uncomplicated
CPT/HCPCS: 36415; 71046; 76536; 80053; 85025; 85610; 99282

== ENCOUNTER 2019-08-24 11:38 | Emergency (ER) | payer MEDICAID, OTHER ==
[2019-08-24 14:51] LABS: Influenza A Molecular Negative (Negative); Influenza B Molecular Negative (Negative)
[2019-08-24 15:06] VITALS: BP 0/0
--- NOTE | 2019-08-24 15:07 | ED ---
Throat Pain/Nasal Congestion - HPI Summary HPI Summary: Pt. is a 28 y.o who presents to the ER for fever, productive cough, sore throat and bodyaches x 3 day. No past hx. Sxs are mild in severity. No current modifying factors. 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 - History of Current Complaint Chief Complaint: EDUpperRespComplaint Time Seen by Provider: 08/24/19 13:54 Hx Obtained From: Patient - Allergies/Home Medications Allergies/Adverse Reactions: Allergies Allergy/AdvReac Type Severity Reaction Status Date / Time bee venom protein (honey bee) Allergy Anaphylatic Verified 08/24/19 11:48 Shock PMH/Surg Hx/FS Hx/Imm Hx Previously Healthy: Yes Endocrine/Hematology History: Denies: Hx Anticoagulant Therapy Cardiovascular History: Denies: Hx Pacemaker/ICD Respiratory History: Denies: Hx Asthma History: Denies: Hx Dialysis Musculoskeletal History: Reports: Other Musculoskeletal History - Left hand injury s/p punching Sensory History: Denies: Hx Legally Blind, Hx Deafness Opthamlomology History: Denies: Hx Legally Blind Neurological History: Denies: Hx Dementia Psychiatric History: Denies: Hx Autism Infectious Disease History: No Infectious Disease History: Denies: Traveled Outside the [place] in Last 30 Days - Family History Known Family History: Positive: Hypertension, Non-Contributory - Social History Occupation: Employed Full-time Lives: With Family Alcohol Use: Occasionally Hx Substance Use: No Substance Use Type: Reports: None Hx Tobacco Use: Yes Smoking Status (MU): Current Every Day Smoker Review of Systems Positive: Fever, Chills Eyes: Negative Positive: Sore Throat, Nasal Discharge Cardiovascular: Negative Positive: Cough. Negative: Shortness Of Breath Gastrointestinal: Negative Positive: Myalgia Neurological: Negative All Other Systems Reviewed And Are Negative: Yes Physical Exam Triage Information Reviewed: Yes Vital Signs On Initial Exam: Initial Vitals Temp Pulse Resp BP Pulse Ox 98.4 F 84 16 141/94 97 08/24/19 11:45 08/24/19 11:45 08/24/19 11:45 08/24/19 11:45 08/24/19 11:45 Vital Signs Reviewed: Yes Appearance: Positive: Well-Appearing - Pt. sitting on bed in NAD. Skin: Positive: Warm, Dry Head/Face: Positive: Normal Head/Face Inspection Eyes: Positive: Normal, EOMI ENT: Positive: Pharynx normal, Nasal congestion, TMs normal Neck: Positive: Supple, Nontender. Negative: Nuchal Rigidity Respiratory/Lung Sounds: Positive: Clear to Auscultation, Breath Sounds Present. Negative: Rales, Rhonchi, Wheezes Cardiovascular: Positive: Normal, RRR Neurological: Positive: Normal, CN Intact II-III Psychiatric: Positive: Affect/Mood Appropriate Procedures - Sedation Patient Received Moderate/Deep Sedation with Procedure: No Diagnostics - Vital Signs Vital Signs Temp Pulse Resp BP Pulse Ox 08/24/19 15:05 0 F 0 0 0/0 0 08/24/19 11:45 98.4 F 84 16 141/94 97 - Laboratory Lab Results: Lab Results 08/24/19 Range/Units 14:25 Influenza A (Rapid) Negative (Negative) Influenza B (Rapid) Negative (Negative) Lab Statement: Any lab studies that have been ordered have been reviewed, and results considered in the medical decision making process. EENT Course/Dx - Course Course Of Treatment: Pt. with above sxs. AFebrile and well appearing. Negative flu. Suspect viral etiology. Supportive care discussed. Will f.u with CCC if sxs persist. - Differential Diagnoses Differential Diagnoses: Influenza, URI/Bronchitis - Diagnoses Provider Diagnoses: Viral syndrome Discharge ED - Sign-Out/Discharge Documenting (check all that apply): Patient Departure - Discharge Plan Condition: Good Disposition: HOME Patient Education Materials: Viral Syndrome (ED) Forms: *Work Release Referrals: [facility] [Outside] Additional Instructions: Follow up with the [facility] Can take over the counter dayquil or nyquil as directed for symptoms Increase fluids or rest Return to ER if symptoms change or worsen - Billing Disposition and Condition Condition: GOOD Disposition: Home - Attestation Statements Provider Attestation: pt seen by midlevel provider independently, based on their assessment, it was not necessary to present the case to me but I was available for consultation. I did not form a physician-patient relationship with the patient. The chart however, has been reviewed. am signing this note strictly in an administrative capacity.
== END 2019-08-24 15:05 | disposition home or self-care (01) ==
LOC: ED 11:38
DX: B34.9 Viral infection, unspecified (principal); R50.9 Fever, unspecified; R05 Cough; J02.9 Acute pharyngitis, unspecified; F17.210 Nicotine dependence, cigarettes, uncomplicated
CPT/HCPCS: 99281